=== PATIENT | male | born 1965 | race Caucasian/White ===

== ENCOUNTER 2017-06-07 15:20 | Emergency (ER) | payer MEDICAID ==
[~2017-06-07] VITALS: Ht 172.7 cm; Wt 69.0 kg
[2017-06-07] MEDS ORDERED: SODIUM CHLORIDE 0.9% 1,000 ML IV ONE (18:09)
[2017-06-07] MEDS ORDERED: ONDANSETRON HCL 4MG/2ML VIAL IV ONE (18:15)
[2017-06-07 18:58] LABS: CHLORIDE 99 mEq/L (98-107)
[2017-06-07 19:12] LABS: ETHANOL BLOOD < 10 mg/dL
[2017-06-07 19:17] LABS: BASOPHILS % 0.4 % (0.0-2.0); HEMATOCRIT. 47.1 % (42.0-52.0); LYMPHOCYTES % 7.9 % (20.0-50.0); MEAN CORPUSCULAR HEMOGLOBIN 33.6 pg (28.0-32.0); MEAN CORPUSCULAR VOLUME 98.7 fL (80.0-94.0); MEAN PLATELET VOLUME 9.4 fl (7.4-10.4); MONOCYTES % 4.6 % (2.0-8.0); NEUTROPHILS % 87.1 % (40.0-76.0); PLATELET 155 x1000/uL (130-400); RED BLOOD CELL COUNT 4.78 mill/uL (4.7-6.1); RED CELL DISTRIBUTION WIDTH 13.4 % (11.6-14.6)
[2017-06-07 19:47] LABS: AMMONIA 36 uMol/L (<32)
[2017-06-07 20:31] LABS: CLARITY URINE CLEAR (CLEAR); COLOR URINE YELLOW (YELLOW); KETONES URINE TRACE (NEGATIVE); LEUKOCYTE ESTERASE URINE NEGATIVE (NEGATIVE); NITRITE URINE NEGATIVE (NEGATIVE); OCCULT BLOOD URINE 1+ (NEGATIVE); PROTEIN URINE 2+ (NEGATIVE); SPECIFIC GRAVITY URINE 1.016 (1.005-1.030)
[2017-06-07 20:44] LABS: *AMPHETAMINES SCREEN URINE NEGATIVE (NEGATIVE); *BARBITURATES SCREEN URINE NEGATIVE (NEGATIVE); *BENZODIAZEPINES SCREEN URINE NEGATIVE (NEGATIVE); *COCAINE SCREEN URINE NEGATIVE (NEGATIVE); CANNABINOID URINE SCREEN NEGATIVE (NEGATIVE); METHADONE URINE SCREEN NEGATIVE (NEGATIVE); OPIATES URINE SCREEN NEGATIVE (NEGATIVE); PHENCYCLIDINE URINE SCREEN NEGATIVE (NEGATIVE)
[2017-06-07] MEDS ORDERED: ACETAMINOPHEN 325MG TABLET PO ONE (21:15)
[2017-06-07 22:00] VITALS: BP 143/87
== END 2017-06-07 23:02 | disposition home or self-care (01) ==
LOC: ER 15:40
DX: R11.2 Nausea with vomiting, unspecified (principal); R51 Headache; R10.9 Unspecified abdominal pain; R40.4 Transient alteration of awareness; F10.129 Alcohol abuse with intoxication, unspecified; F12.10 Cannabis abuse, uncomplicated; Z59.0 Homelessness
CPT/HCPCS: 36415; 70450; 80053; 80305; 80307; 80329; 81001; 82140; 83690; 83735; 84484; 85025; 93005; 96374; 99285; G0482; J2405; J7030; Z7610

== ENCOUNTER 2020-07-19 10:09 | Inpatient (IN) | payer MEDICAID ==
[~2020-07-19] VITALS: Ht 177.8 cm; Wt 79.0 kg
[2020-07-19] MEDS ORDERED: LORAZEPAM 2MG/ML CPJ IV STA (10:32)
[2020-07-19] MEDS ORDERED: SODIUM CHLORIDE 0.9% 1,000 ML IV ONE (10:45)
[2020-07-19] MEDS ORDERED: LEVETIRACETAM 500MG PREMIX 100 ML IV ONE (10:45)
[2020-07-19] MEDS ORDERED: FOLIC ACID 1 MG, THIAMINE HCL 100 MG, MVI, ADULT NO.1 10 ML in DEXTROSE 5% WATER 1,000 ML IV ONE (10:45)
[2020-07-19] MEDS ORDERED: MULTIVITAMINS,THER W-MINERALS TABLET PO NR (10:45)
[2020-07-19] MEDS ORDERED: ONDANSETRON HCL 4MG/2ML INJ IV ONE (10:45)
[2020-07-19] MEDS ORDERED: FOLIC ACID 1 MG, THIAMINE HCL 100 MG in DEXTROSE 5% WATER 1,000 ML IV NR ×2 (10:45→16:30)
[2020-07-19 11:17] LABS: BASOPHILS % 0.4 % (0.0-2.0); EOSINOPHILS % 0.1 % (0.0-5.0); HEMATOCRIT. 43.3 % (42.0-52.0); HEMOGLOBIN. 14.6 g/dL (14.0-18.0); LYMPHOCYTES % 13.9 % (20.0-50.0); MEAN CORPUSCULAR HEMOGLOBIN 33.3 pg (28.0-32.0); MEAN PLATELET VOLUME 10.4 fl (7.4-10.4); MONOCYTES % 10.4 % (2.0-8.0); NEUTROPHILS % 75.2 % (40.0-76.0); PLATELET 100 x1000/uL (130-400); RED BLOOD CELL COUNT 4.37 mill/uL (4.7-6.1); RED CELL DISTRIBUTION WIDTH 13.4 % (11.6-14.6)
[2020-07-19 11:24] LABS: CHLORIDE 94 mEq/L (98-107)
[2020-07-19 11:27] LABS: INR 1.1; PARTIAL THROMBOPLASTIN TIME 24.6 sec (23.4-31.0); PROTHROMBIN TIME 11.9 sec (9.6-11.0)
[2020-07-19 11:29] LABS: ETHANOL BLOOD < 10 mg/dL
[2020-07-19] MEDS ORDERED: LORAZEPAM 2MG/ML CPJ IV ONE (11:30)
[2020-07-19 11:39] LABS: CARBAMAZEPINE < 0.5 ug/mL (4-12); PHENOBARBITAL < 2.1 ug/mL (15.0-40.0); VALPROIC ACID < 3.0 ug/mL (50-100)
[2020-07-19] MEDS ORDERED: LACTULOSE 20G/30ML UDC PO ONE (12:30)
[2020-07-19] MEDS ORDERED: DIPHENHYDRAMINE 50MG/ML VIAL IV PRN (16:00)
[2020-07-19] MEDS ORDERED: LORAZEPAM 0.5MG TABLET PO PRN (16:00)
[2020-07-19] MEDS ORDERED: IPRATROPIUM/ALBUTEROL 0.5-3(2.5)MG/3ML NEB HHN PRN (16:00)
[2020-07-19] MEDS ORDERED: LACTULOSE 20G/30ML UDC PO PRN (16:00)
[2020-07-19] MEDS ORDERED: ONDANSETRON HCL 4MG/2ML INJ IV PRN (16:00)
[2020-07-19] MEDS ORDERED: CLONIDINE 0.1MG TABLET PO PRN (16:00)
[2020-07-19] MEDS ORDERED: FOLIC ACID 1 MG, THIAMINE HCL 100 MG in SODIUM CHLORIDE 0.9% 1,000 ML IV NR (17:30)
[2020-07-19 21:47] VITALS: BP 142/80
[2020-07-19] MEDS ORDERED: CHLORDIAZEPOXIDE 25MG CAPSULE PO SCH (22:00)
== END 2020-07-19 23:50 | disposition left against medical advice (07) | DRG 53 ==
LOC: ER 10:09 → EDBEDREQ 18:35 → ENRESERV 21:02 → 3WST 22:14
PROVIDERS: ADMIT Internal Medicine; ATTEND Internal Medicine
DX: G40.89 Other seizures (principal); Z53.29 Procedure and treatment not carried out because of patient's decision for other reasons; K75.9 Inflammatory liver disease, unspecified; F10.10 Alcohol abuse, uncomplicated; Y90.9 Presence of alcohol in blood, level not specified; Z20.822 Contact with and (suspected) exposure to COVID-19
CPT/HCPCS: 36415; 71045; 80053; 80156; 80165; 80184; 80185; 80307; 80320; 80329; 82140; 82962; 83735; 83880; 84443; 84484; 85025; 86850; 86900; 87426; 93005; 99291; J1953; J2060; J2405; J3411; J3490; J7030; J7070; G0480

== ENCOUNTER 2021-05-18 01:45 | Emergency (ER) | payer MEDICAID ==
[~2021-05-18] VITALS: Ht 177.8 cm; Wt 82.0 kg
[2021-05-18 01:53] VITALS: BP 165/97
== END 2021-05-18 03:15 | disposition left against medical advice (07) ==
LOC: ER 01:54
DX: G40.909 Epilepsy, unspecified, not intractable, without status epilepticus (principal); F12.10 Cannabis abuse, uncomplicated; F10.20 Alcohol dependence, uncomplicated; Y90.9 Presence of alcohol in blood, level not specified
CPT/HCPCS: 99283

== ENCOUNTER 2021-05-18 21:06 | Emergency (ER) | payer MEDICAID ==
[~2021-05-18] VITALS: Ht 177.8 cm; Wt 68.0 kg
[2021-05-18 22:24] LABS: BASOPHILS % 0.2 % (0.0-2.0); EOSINOPHILS % 0.2 % (0.0-5.0); HEMATOCRIT. 44.6 % (42.0-52.0); HEMOGLOBIN. 15.1 g/dL (14.0-18.0); LYMPHOCYTES % 11.7 % (20.0-50.0); MEAN CORPUSCULAR HEMOGLOBIN 32.9 pg (28.0-32.0); MEAN CORPUSCULAR VOLUME 97.4 fL (80.0-94.0); MEAN PLATELET VOLUME 9.4 fl (7.4-10.4); NEUTROPHILS % 78.9 % (40.0-76.0); PLATELET 135 x1000/uL (130-400); RED BLOOD CELL COUNT 4.58 mill/uL (4.7-6.1); RED CELL DISTRIBUTION WIDTH 13.6 % (11.6-14.6)
[2021-05-18 22:27] LABS: CHLORIDE 95 mEq/L (98-107)
[2021-05-18 22:39] LABS: ETHANOL BLOOD < 10 mg/dL
[2021-05-18 22:56] LABS: CARBAMAZEPINE < 0.5 ug/mL (4-12); PHENOBARBITAL < 2.1 ug/mL (15.0-40.0); VALPROIC ACID < 3.0 ug/mL (50-100)
[2021-05-18 23:30] VITALS: BP 152/94
== END 2021-05-18 23:30 | disposition home or self-care (01) ==
LOC: ER 21:06
DX: G40.909 Epilepsy, unspecified, not intractable, without status epilepticus (principal); F12.10 Cannabis abuse, uncomplicated; F10.20 Alcohol dependence, uncomplicated; Y90.0 Blood alcohol level of less than 20 mg/100 ml
CPT/HCPCS: 36415; 80053; 80156; 80165; 80184; 80185; 80320; 82962; 85025; 99283; G0480

== ENCOUNTER 2021-05-19 03:20 | Inpatient (IN) | payer MEDICAID ==
[~2021-05-19] VITALS: Ht 177.8 cm; Wt 76.3 kg
[2021-05-19] MEDS ORDERED: ONDANSETRON HCL 4MG/2ML INJ IV STA (03:36)
[2021-05-19] MEDS ORDERED: MAGNESIUM 2 G PREMIX 50 ML IV ONE (03:45)
[2021-05-19] MEDS ORDERED: LEVETIRACETAM 1000MG PREMIX 100 ML IV ONE (03:45)
[2021-05-19] MEDS ORDERED: LORAZEPAM 2MG/ML CPJ IV ONE (03:45)
[2021-05-19] MEDS ORDERED: FOLIC ACID 1 MG, THIAMINE HCL 100 MG, MVI, ADULT NO.1 10 ML in DEXTROSE 5% WATER 1,000 ML IV ONE (03:45)
[2021-05-19] MEDS ORDERED: ONDANSETRON HCL 4MG/2ML INJ IV PRN (08:30)
[2021-05-19] MEDS ORDERED: CLONIDINE 0.1MG TABLET PO PRN (08:30)
[2021-05-19] MEDS ORDERED: ACETAMINOPHEN 325MG TABLET PO PRN (08:30)
[2021-05-19] MEDS ORDERED: IPRATROPIUM/ALBUTEROL 0.5-3(2.5)MG/3ML NEB HHN PRN (08:30)
[2021-05-19] MEDS: LORAZEPAM 2MG/ML CPJ IV PRN ×2 (09:01→15:10)
[2021-05-19] MEDS: DIPHENHYDRAMINE 50MG/ML VIAL IV PRN ×2 (09:15→15:10)
[2021-05-19] MEDS: HALOPERIDOL LACTATE 5MG/ML VIAL IM PRN ×2 (10:27→15:10)
[2021-05-19] MEDS: CHLORDIAZEPOXIDE 25MG CAPSULE PO SCH ×2 (14:00→22:01)
[2021-05-19 18:45] VITALS: BP 130/75
[2021-05-19 20:00] VITALS: BP 145/80
[2021-05-19] MEDS ORDERED: LEVETIRACETAM 500MG PREMIX 100 ML IV SCH (21:00)
[2021-05-20] VITALS: BP 161/92
[2021-05-20] MEDS: LEVETIRACETAM 500MG PREMIX 100 ML IV SCH ×3 (00:01→21:02)
[2021-05-20] MEDS: DIPHENHYDRAMINE 50MG/ML VIAL IV PRN (00:01)
[2021-05-20] MEDS ORDERED: DEXTROSE 50% WATER 50ML SYRINGE IV PRN (00:45)
[2021-05-20 04:00] VITALS: BP 134/79
[2021-05-20] MEDS: CHLORDIAZEPOXIDE 25MG CAPSULE PO SCH ×3 (05:28→21:14)
[2021-05-20] MEDS: BLOOD SUGAR DIAGNOSTIC STRIP TEST SCH ×4 (06:24→21:03)
[2021-05-20 07:07] LABS: BASOPHILS % 0.5 % (0.0-2.0); EOSINOPHILS % 0.3 % (0.0-5.0); HEMATOCRIT. 44.7 % (42.0-52.0); HEMOGLOBIN. 14.9 g/dL (14.0-18.0); LYMPHOCYTES % 19.3 % (20.0-50.0); MEAN CORPUSCULAR VOLUME 99.3 fL (80.0-94.0); MEAN PLATELET VOLUME 10.4 fl (7.4-10.4); MONOCYTES % 14.4 % (2.0-8.0); NEUTROPHILS % 65.5 % (40.0-76.0); PLATELET 147 x1000/uL (130-400); RED CELL DISTRIBUTION WIDTH 13.9 % (11.6-14.6)
[2021-05-20] MEDS: INSULIN LISPRO 100 UNITS/ML SUBCUT SCH ×4 (07:40→21:00)
[2021-05-20 07:41] LABS: CHLORIDE 101 mEq/L (98-107)
[2021-05-20 08:00] VITALS: BP 138/80
[2021-05-20] MEDS ORDERED: POTASSIUM CHLORIDE 20MEQ/PACKET PO SCH (09:45)
[2021-05-20] MEDS ORDERED: POTASSIUM CHLORIDE INJ 40 MEQ in DEXT 5% WATER 250 ML IV ONE (09:45)
[2021-05-20] MEDS: KCL 20MEQ/100ML PREMIX 100 ML IV SCH ×2 (10:53→13:17)
[2021-05-20 12:00] VITALS: BP 119/75
[2021-05-20 16:00] VITALS: BP 124/71
[2021-05-20 20:00] VITALS: BP 113/68
[2021-05-21] VITALS: BP 130/81
[2021-05-21 04:00] VITALS: BP 129/81
[2021-05-21] MEDS: CHLORDIAZEPOXIDE 25MG CAPSULE PO SCH ×3 (05:18→21:35)
[2021-05-21] MEDS: BLOOD SUGAR DIAGNOSTIC STRIP TEST SCH ×4 (07:38→20:56)
[2021-05-21] MEDS: INSULIN LISPRO 100 UNITS/ML SUBCUT SCH ×4 (07:38→20:56)
[2021-05-21 08:00] VITALS: BP 132/80
[2021-05-21] MEDS: LEVETIRACETAM 500MG PREMIX 100 ML IV SCH ×2 (09:57→20:56)
[2021-05-21 12:00] VITALS: BP 120/81
[2021-05-21 16:00] VITALS: BP 136/81
[2021-05-21 20:00] VITALS: BP 114/78
[2021-05-22] VITALS: BP 97/59
[2021-05-22 04:00] VITALS: BP 105/69
[2021-05-22] MEDS: CHLORDIAZEPOXIDE 25MG CAPSULE PO SCH ×3 (05:48→21:00)
[2021-05-22] MEDS: BLOOD SUGAR DIAGNOSTIC STRIP TEST SCH ×4 (07:21→20:32)
[2021-05-22] MEDS: INSULIN LISPRO 100 UNITS/ML SUBCUT SCH ×4 (07:21→20:32)
[2021-05-22 08:00] VITALS: BP 119/80
[2021-05-22] MEDS: LEVETIRACETAM 500MG PREMIX 100 ML IV SCH ×2 (08:58→21:00)
[2021-05-22 12:00] VITALS: BP 114/75
[2021-05-22] MEDS ORDERED: MULT-230 MT (12:40)
[2021-05-22] MEDS ORDERED: THIA100T72 MT (12:40)
[2021-05-22] MEDS ORDERED: CHLO25CA10 MT (12:40)
[2021-05-22] MEDS ORDERED: KEPP500 MT (12:40)
[2021-05-22] MEDS ORDERED: FOLI-43 MT (12:40)
[2021-05-22 16:00] VITALS: BP 104/65
[2021-05-22 20:00] VITALS: BP 115/74
[2021-05-23] VITALS: BP 114/76
[2021-05-23 04:00] VITALS: BP 119/72
[2021-05-23] MEDS: CHLORDIAZEPOXIDE 25MG CAPSULE PO SCH ×2 (05:21→13:17)
[2021-05-23] MEDS: BLOOD SUGAR DIAGNOSTIC STRIP TEST SCH ×2 (06:12→11:20)
[2021-05-23] MEDS: INSULIN LISPRO 100 UNITS/ML SUBCUT SCH ×2 (06:12→11:20)
[2021-05-23 08:00] VITALS: BP 108/68
[2021-05-23] MEDS ORDERED: LEVETIRACETAM 500MG TABLET PO SCH (09:00)
[2021-05-23] MEDS ORDERED: MAGNESIUM 2 G PREMIX 50 ML IV SCH (09:00)
[2021-05-23 12:00] VITALS: BP 111/66
== END 2021-05-23 16:00 | disposition home or self-care (01) | DRG 53 ==
LOC: ER 03:20 → 8WST 05:50 → ENRESERV 16:50 → UNDODISIN 05-20 12:06
PROVIDERS: ADMIT Internal Medicine; ATTEND Internal Medicine
DX: G40.89 Other seizures (principal); E87.6 Hypokalemia; F10.139 Alcohol abuse with withdrawal, unspecified; R74.01 Elevation of levels of liver transaminase levels; Z20.822 Contact with and (suspected) exposure to COVID-19; Y90.9 Presence of alcohol in blood, level not specified; Z78.1 Physical restraint status; Z82.49 Family history of ischemic heart disease and other diseases of the circulatory system
CPT/HCPCS: 36415; 80053; 80076; 82962; 83036; 83605; 83735; 84132; 84443; 85025; 87426; 99291; C1893; J1200; J1630; J1953; J2060; J2405; J3411; J3475; J3480; J3490; J7070